=== PATIENT | male | born 1945 | race Caucasian/White ===

== ENCOUNTER 2018-11-20 14:01 | Emergency (ER) | payer OTHER, BC ==
--- NOTE | 2018-11-20 14:09 | PDOC ---
Rapid Medical Evaluation Chief Complaint: Chest Pain Time Seen by Provider: 11/20/18 14:09 Medical Evaluation: 11/20/18 14:09 I have performed a brief in-person evaluation of this patient. The patient presents with a chief complaint of: Retrosternal chest pain this afternoon, which does not radiate anywhere. No CP now, no SOB. Pt had similar pain a week ago. Pertinent physical exam findings: Pt in no apparent distress I have ordered the following: CBC, CMP, mag, phos, EKG, CXR, cardiac markers The patient will proceed to the ED for further evaluation. 11/20/18 14:11 Discharge Disposition - Diagnosis Chest pain Qualifiers: Chest pain type: unspecified Qualified Code(s): R07.9 - Chest pain, unspecified - Referrals - Patient Instructions - Post Discharge Activity
[2018-11-20 14:10] VITALS: BMI 23.6
--- NOTE | 2018-11-20 15:20 | PDOC ---
Documentation entered by Chele Torres SCRIBE, acting as scribe for Sohail Young MD. Sohail Young MD: This documentation has been prepared by the Brian delaney Elijah, SCRIBE, under my direction and personally reviewed by me in its entirety. I confirm that the documentation accurately reflects all work, treatment, procedures, and medical decision making performed by me. Attending Attestation - Resident Resident Name: OviCitlalli - ED Attending Attestation I have performed the following: I have examined & evaluated the patient, The case was reviewed & discussed with the resident, I agree w/resident's findings & plan - HPI HPI: 11/20/18 15:52 Patient is a 73 year old mal with no reported significant past medical history who presents to the ED with Chest pain. The patient reports that he was eating when he started to have a sudden onset of Chest Pain. The patient notes he had a similar episode a week prior while he was walking, planned to see his PCP, but when it happened again today it prompted his visit to the ED. Allergies: NKA - Physicial Exam PE: 11/20/18 15:52 Vitals: Triage Vital signs reviewed General Appearance: no acute distress, well nourished well developed, Head: Atraumatic, normocephalic Neck: Supple;No Nuchal rigidity Chest Wall: Nontender Cardiac: Regular rate and rhythm, no murmurs, no rubs, no gallops, Lungs: Clear to auscultation bilateral, good air movement bilaterally, Abdomen: Soft, nondistended, normal bowel sounds, nontender to palpation Rectal: Exam deferred Extremities: Full range of motion to all extremities, no cyanosis, clubbing, or edema Skin: Warm and dry, no rashes or lesions, no petechiae Psych: normal mood, normal affect - Medical Decision Making 11/20/18 20:51 Hx and exam c/w angina, possible unstable angina this afternoon. CP free EKG show inferior depressions, questionable 1mm elevations in aVR V1, possibly suggestive of sub occlusive dz Dw Dr. Salazar Cardiology. Plan to transfer to [facility] for cath tomorrow. Pt. informed and in agreement with plan Dr. Josemanuel barrett MD
[2018-11-20 15:29] LABS: BASO % 0.8 % (0-2.0); EOS % 0.5 % (0-4.5); HEMATOCRIT 42.9 % (35.4-49); HEMOGLOBIN 14.4 GM/dL (11.7-16.9); LYMPH % 19.7 % (8-40); MCH 29.4 pg (25.7-33.7); MCHC 33.6 g/dl (32.0-35.9); MEAN CELL VOLUME 87.6 fl (80-96); MEAN PLT VOLUME 8.2 fl (7.5-11.1); MONO % 8.1 % (3.8-10.2); NEUT % 70.9 % (42.8-82.8); PLATELET COUNT 199 K/MM3 (134-434); RDW 14.7 % (11.9-15.9); WHITE BLOOD COUNT 6.5 K/mm3 (4.0-10.0)
[2018-11-20 16:06] LABS: INR 1.03 (0.83-1.09); PROTHROMBIN TIME (PATIENT) 12.1 SEC (9.7-13.0)
[2018-11-20 16:14] LABS: ALBUMIN 4.1 g/dl (3.4-5.0); BILIRUBIN,TOTAL 0.4 mg/dL (0.2-1); BLOOD UREA NITROGEN 16.1 mg/dL (7-18); CALCIUM 9.2 mg/dL (8.5-10.1); CREATININE 1.2 mg/dL (0.55-1.3); MAGNESIUM 2.1 mg/dL (1.8-2.4); PHOSPHOROUS 2.9 mg/dL (2.5-4.9); TOT PROT 8.1 g/dl (6.4-8.2)
--- NOTE | 2018-11-20 16:17 | PDOC ---
History of Present Illness - General Chief Complaint: Chest Pain Stated Complaint: CHEST PAIN Time Seen by Provider: 11/20/18 14:09 History Source: Patient Exam Limitations: No Limitations - History of Present Illness Initial Comments: Pt is a 73 yo M, with PMH of nephrolithiasis and ESWL, presents with intermittent substernal chest pain. Pt states he has had these episodes over the past 2 weeks, which are accompanied by "turning pale" with diaphoresis, nausea, and vomiting. Pt denies pain radiation, but states this episode was more severe today than the other days. The episodes in the past was associated with exertion, but today it happened while he was sitting and eating. Pt denies any fevers/chills, headache, vision changes, syncope, palpitations, SOB, abdominal pain, urinary symptoms, diarrhea/constipation, or leg swelling. Allergies: NKDA PCP: Social: Pt denies any cigarette, alcohol, or drug use. Pt denies any recent travel or sick contacts. Surgical: no relevant history. Family: no relevant history. 11/20/18 16:56 Past History - Travel Traveled outside of the country in the last 30 days: No Close contact w/someone who was outside of country & ill: No - Past Medical History Allergies/Adverse Reactions: Allergies Allergy/AdvReac Type Severity Reaction Status Date / Time No Known Allergies Allergy Verified 11/20/18 14:10 Home Medications: Ambulatory Orders Unobtainable 11/20/18 COPD: No - Suicide/Smoking/Psychosocial Hx Smoking History: Never smoked Information on smoking cessation initiated: No Hx Alcohol Use: No Drug/Substance Use Hx: No Cardiac Specific PMH - Complaint Specific PMHX Abdominal Aortic Aneurysm: No Angina: No Cardiac Arrhythmia: No Cardiac Stent: No GERD: No Myocardial Infarction: No Pacemaker: No Pulmonary Embolus: No Valvular Heart Disease: No Peripheral Vascular Disease: No Review of Systems - Review of Systems Able to Perform ROS?: Yes Is the patient limited Spanish proficient: No Constitutional: Yes: Weight Stable. No: Chills, Diaphoresis, Fever, Loss of Appetite, Weakness HEENTM: No: Blurred Vision, Double Vision, Nose Congestion, Throat Pain, Throat Swelling, Difficulty Swallowing Respiratory: No: Cough, Orthopnea, Shortness of Breath, Wheezing, Productive cough, Hemoptysis Cardiac (ROS): Yes: Chest Pain. No: Edema, Irregular Heart Rate, Lightheadedness, Palpitations, Syncope, Chest Tightness ABD/GI: Yes: Nausea, Vomiting. No: Constipated, Diarrhea, Poor Appetite, Poor Fluid Intake, Indigestion, Abdominal cramping : No: Burning, Dysuria, Pain, Urgency Musculoskeletal: No: Back Pain, Joint Pain, Muscle Weakness Integumentary: No: Rash Neurological: No: Numbness, Paresthesia, Weakness, Unsteady Gait, Dizziness Psychiatric: No: Sleep Pattern Change, Change in Appetite Endocrine: No: Increased Urine, Change in Weight Hematologic/Lymphatic: No: Anemia, Blood Clots, Easy Bleeding, Easy Bruising All Other Systems: Reviewed and Negative *Physical Exam - Vital Signs Last Vital Signs Temp Pulse Resp BP Pulse Ox 98.1 F 77 18 133/77 98 11/20/18 19:42 11/20/18 19:42 11/20/18 19:42 11/20/18 19:42 11/20/18 17:33 - Physical Exam Comments: Vitals stable, pt afebrile. Pt in NAD, normal body habitus. Pt alert and oriented x3. engine builder generally intact, muscular strength and sensation intact. No midline spinal tenderness, step-offs, or crepitus. Head normocephalic, atraumatic. Eyes PERRLA, EOMI. Oropharynx without erythema or exudates, no LAD b/l. No nasal congestion, hearing intact. Clear heart sounds, S1/S2, no JVD, b/l pedal edema, or heart murmur. Clear lung sounds, no respiratory distress, wheezes, crackles, or accessory muscle use. No reproducible chest wall TTP. No abdominal or CVA tenderness to palpation, no rebound, no guarding. Abdomen soft, non-distended, and with normoactive bowel sounds. Skin without jaundice or rash. 11/20/18 17:36 ED Treatment Course - LABORATORY CBC & Chemistry Diagram: 11/20/18 15:20 11/20/18 15:20 - ADDITIONAL ORDERS Additional order review: Laboratory Results 11/20/18 17:36 Blood Type O POSITIVE 11/20/18 15:20 RBC 4.90 MCV 87.6 MCHC 33.6 RDW 14.7 MPV 8.2 Neutrophils % 70.9 Lymphocytes % 19.7 Monocytes % 8.1 Eosinophils % 0.5 Basophils % 0.8 - Medications Given in the ED: ED Medications Discontinued Medications Generic Name Dose Route Start Last Admin Trade Name Yue PRN Reason Stop Dose Admin Aspirin 325 mg 11/20/18 16:34 11/20/18 16:59 Asa - PO 11/20/18 16:35 325 mg ONCE ONE Administration Medical Decision Making - Medical Decision Making Pt was seen at bedside, also will be seen by attending Dr. Young. Pt presenting with intermittent episodes of chest pain, story consistent with now un-stable angina. ECG concerning for potential Wellens/LAD occlusion, combined with concerning HPI, will contact cardiology and potential 2-troponin versus admission for non-emergent cath. Ordered work-up including CBC, CMP, cardiac profile, chest x-ray, coags. Pt denies pain control at this time. Will continue to reassess pt and monitor for symptomatic improvement. ECG: NSR, intervals WNL. Concerning mild ST segment elevations in aVR and V1, with reciprocal depressions in II, III, aVF -- suggestive of possible LAD/Wellen 's pattern. CBC and CMP WNL Trop 0.07 -- borderline for ACS Provided full dose ASA. Chest x-ray with no acute pathology. Spoke with Cardiology team (Dr. Salazar) who suggested transfer to [facility] for non-emergent cath. Pt was admitted to Cards team at [facility] (Dr. Abernathy accepting). Pending transport to [facility] via ALS. Pt continues to have no active chest pain at this time. 11/20/18 17:37 Pt was transferred to [facility] via ALS. Pt was stable in ED with no active chest pain. 11/21/18 07:17 *DC/Admit/Observation/Transfer Diagnosis at time of Disposition: Chest pain Qualifiers: Chest pain type: unspecified Qualified Code(s): R07.9 - Chest pain, unspecified - Discharge Dispostion Disposition: TRANSFER ACUTE CARE/OTHER HOSP Condition at time of disposition: Stable - Referrals - Patient Instructions - Post Discharge Activity - Transfer to Acute Care Facility Receiving Facility: [facility] ([place], [facility]) Accepting Physician:: Josemanuel
[2018-11-20] MEDS ORDERED: ASPIRIN 325 MG TABLET PO ONE (16:34)
--- NOTE | 2018-11-20 16:53 | CON.CARD ---
Consult Consult Specialty:: Cardilogy Reason for Consultation:: Unstable angina - History of Present Illness Chief Complaint: Chest pain History of Present Illness: This is a 73 year old male with boarderline HLD but no other significant PMH. Over the past several days, he has been getting intermittent chest pain associated with nausea and diaphoresis. His father had an NE at age 61. Last week it occured while walking. Today the patient was eating and developed chest pain with nausea and diaphoresis. Chikis presented to the ED. EKG showed NSR at [address] depressions 0.5 mm in the inferior leads with reciprical changes in the anterior precordial leads. First trops were 0.07 and the Cr was 1.2. He his being transferred to [facility]. Presently CP free. Given ASA 81 mg daily. - Alcohol/Substance Use Hx Alcohol Use: No - Smoking History Smoking history: Never smoked Home Medications - Allergies Allergies/Adverse Reactions: Allergies Allergy/AdvReac Type Severity Reaction Status Date / Time No Known Allergies Allergy Verified 11/20/18 14:10 Vital Signs: Vital Signs Temperature 97.5 F L 11/20/18 14:08 Pulse Rate 76 11/20/18 14:08 Respiratory Rate 19 11/20/18 14:08 Blood Pressure 129/107 H 11/20/18 14:08 O2 Sat by Pulse Oximetry (%) 100 11/20/18 14:08 Constitutional: Yes: Well Nourished Eyes: Yes: WNL HENT: Yes: WNL Neck: Yes: WNL Respiratory: Yes: CTA Bilaterally Gastrointestinal: Yes: Soft Cardiovascular: Yes: Regular Rate and Rhythm Heart Sounds: Yes: S1, S2 Extremities: Yes: WNL Edema: No Neurological: Yes: Alert, Oriented - Other Data Labs, Other Data: CBC, BMP 11/20/18 15:20 11/20/18 15:20 INR, PTT INR 1.03 (0.83-1.09) 11/20/18 15:20 Troponin, BNP 11/20/18 15:20 Troponin I 0.07 H Troponin, BNP 11/20/18 15:20 Troponin I 0.07 H Assessment/Plan 73 year old male with boarderline HLD but no other significant PMH. Over the past several days, he has been getting intermittent chest pain associated with nausea and diaphoresis. His father had an NE at age 61. Last week it occured while walking. Today the patient was eating and developed chest pain with nausea and diaphoresis. Chikis presented to the ED. EKG showed NSR at [address] depressions 0.5 mm in the inferior leads with reciprical changes in the anterior precordial leads. First trops were 0.07 and the Cr was 1.2. He his being transferred to [facility]. Presently CP free. Given ASA 81 mg daily. Plan for cardiac cath tomorrow Would start lovenox
[2018-11-20] MEDS ORDERED: ASPIRIN 325 MG TABLET ONE (16:56)
--- NOTE | 2018-11-20 17:17 | EKG ---
Test Reason : Blood Pressure : / mmHG Vent. Rate : 072 BPM Atrial Rate : 072 BPM P-R Int : 146 ms QRS Dur : 094 ms QT Int : 384 ms P-R-T Axes : 072 -14 034 degrees QTc Int : 420 ms NORMAL SINUS RHYTHM NONSPECIFIC ST ABNORMALITY ABNORMAL ECG NO PREVIOUS ECGS AVAILABLE Confirmed by MACARIO FUCHS, AVELINO ([id number]) on 11/20/2018 5:17:19 PM Referred By: Confirmed By:AVELINO SORTO MD
[2018-11-20 17:34] VITALS: BP 133/77; PULSE 77; TEMP 98.1
== END 2018-11-20 19:45 | disposition short-term general hospital (02) ==
LOC: JER 14:01
DX: R07.9 Chest pain, unspecified (principal)
CPT/HCPCS: 36415; 71045-TC-FY; 80053; 82550; 82553; 83690; 83735; 84100; 84484; 85025; 85610; 86850; 86900; 86901; 93005; 93010; 99285-25